=== PATIENT | female | born 1975 | race Hispanic/Latino ===

== ENCOUNTER 2019-08-01 03:00 | Emergency (ER) | payer OTHER ==
[~2019-08-01] VITALS: Ht 160 cm; Wt 69.9 kg
[2019-08-01] MEDS ORDERED: SODIUM CHLORIDE 0.9% 1000ML 1,000 ML IV STA (03:13)
[2019-08-01] MEDS ORDERED: ONDANSETRON HCL INJ 2MG/ML 2ML 2 MG/ML VIAL IV STA (03:13)
[2019-08-01] MEDS ORDERED: SODIUM CHLORIDE 0.9% 1000ML 1,000 ML ONE (03:50)
[2019-08-01] MEDS ORDERED: ONDANSETRON HCL INJ 2MG/ML 2ML 2 MG/ML VIAL ONE (03:50)
--- NOTE | 2019-08-01 04:14 | Diagnostic Imaging Report ---
EXAM: CT Abdomen and Pelvis without contrast INDICATION: Abdominal pain, nausea, vomiting. COMPARISON: None. TECHNIQUE: Abdomen and pelvis were scanned utilizing a multidetector helical scanner from the lung base to the pubic symphysis without administration of IV contrast. Coronal and sagittal reformations were obtained. IV CONTRAST: None. ORAL CONTRAST: None COMPLICATIONS: None RADIATION DOSE: Total DLP: 459 mGy*cm Estimated effective dose: (DLP x 0.015 x size factor) mSv CTDIvol has been reviewed. It is below the limits set by the Radiation Protocol Committee (RPC). FINDINGS: LINES and TUBES: None. LOWER THORAX: Unremarkable HEPATOBILIARY: Severe diffuse hepatic steatosis. Hepatomegaly. No evidence of focal lesion. No biliary ductal dilation. GALLBLADDER: Status post cholecystectomy. SPLEEN: No splenomegaly. PANCREAS: No focal masses or ductal dilatation. ADRENALS: No adrenal nodules KIDNEYS/URETERS: Kidneys enhance symmetrically. No evidence of hydronephrosis, solid mass, or stone. GI TRACT: No evidence of bowel obstruction. There is bowel wall thickening in the distal transverse colon and descending colon. Mild fatty infiltration in the ileal wall. The appendix is possibly visualized as seen on sagittal series 300, image 43 and axial series 2, image 62. Limited evaluation in the absence of IV and oral contrast. The appendix may be mildly borderline dilated measuring 7 mm, however there are no surrounding inflammatory changes to suggest appendicitis. PELVIC ORGANS/BLADDER: Bilateral Essure devices are noted. LYMPH NODES: No lymphadenopathy. VESSELS: Unremarkable. PERITONEUM / RETROPERITONEUM: No free air or fluid. BONES AND SOFT TISSUES: Unremarkable. CONCLUSION: Severe diffuse hepatic steatosis with hepatomegaly. Mild wall thickening of the distal transverse colon and descending colon may reflect decompression versus nonspecific colitis, which may be infectious or inflammatory. The appendix is possibly visualized and may be mildly dilated measuring up to 7 mm, however there are no surrounding inflammatory changes to suggest appendicitis. Signed by: Dr. Damon Smith MD on 08/01/2019 4:11 AM
--- NOTE | 2019-08-01 04:24 | Emergency Department Note ---
History of Present Illnes History of Present Illness Chief Complaint: Abdominal Complaints History of Present Illness This is a 43 year old female abdominal pain vomiting diarrhe . Historian: Patient Arrival Mode: Car Onset (how long ago): day(s) (2) Location: generalized Quality: cramping Radiation: non-radiation Severity: moderate Onset quality: gradual Duration (how long): day(s) (1) Timing of current episode: intermittent Progression: waxing and waning Chronicity: new Context: recent illness, recent surgery, recent immobilization, recent travel, trauma/injury, new medications, hx of DVT/PE, non-compliance w/ medications, other Relieving factors: none Exacerbating factors: none Associated symptoms: denies other symptoms Treatments prior to arrival: none Past Medical/Family History Physician Review I have reviewed the patient's past medical and family history. Any updates have been documented here. Past Medical History Recent Fever: No Clinical Suspicion of Infectio: No New/Unexplained Change in Ment: No Past Medical History: None Past Surgical History: Cholecysctectomy, Social History Smoking Cessation: Never Smoker Alcohol Use: None Any Illegal Drug Use: No TB Exposure/Symptoms: No Physically hurt or threatened: No Other Any Pre-Existing Lines (PICC,: No Is patient up to date on immun: No Last Flu: 01/27 Last Pneumovax: NA Review of Systems Review of Systems Constitutional: no symptoms EENTM: no symptoms Cardiovascular: no symptoms Respiratory: no symptoms Gastrointestinal: as per HPI, abdominal pain, diarrhea, nausea, vomiting Genitourinary: no symptoms Musculoskeletal: no symptoms Neurological: no symptoms Psychological: no symptoms Endocrine: no symptoms Hematological/Lymphatic: no symptoms Review of other systems All other systems reviewed and negative. Physical Exam Related Data Triage Vital Signs Vital Signs Date Time Temp Pulse Resp B/P (MAP) Pulse Ox O2 Delivery O2 Flow Rate FiO2 08/01/19 03:07 98.3 98 18 163/84 99 Vital signs reviewed: Yes Physical Exam CONSTITUTIONAL Constitutional: well-developed, well-nourished HENT HENT: normocephalic, atraumatic, oropharynx clear/moist, nose normal HENT L/R: left ext ear normal, right ext ear normal EYES Eyes: PERRL, conjunctivae normal NECK Neck: ROM normal PULMONARY Pulmonary: effort normal, breath sounds normal CARDIOVASCULAR Cardiovascular: regular rhythm, heart sounds normal, capillary refill normal, normal rate GASTROINTESTINAL Abdominal: soft, bowel sounds normal, tender GENITOURINARY Genitourinary: exam deferred SKIN Skin: warm, dry MUSCULOSKELETAL Musculoskeletal: ROM normal NEUROLOGICAL Neurological: alert, oriented x 3, no gross motor or sensory deficits PSYCHOLOGICAL Psychological: mood/affect normal, judgement normal Results Laboratory Lab results reviewed: Yes Imaging Imaging results reviewed: Yes Critical Care Time Subsequent provider I assumed direction of critical care for this patient from another provider of my specialty. Assessment & Plan Reassessment Reassessment time: 04:23 (improved) Assessment & Plan Final Impression: (1) Diarrhea (2) Vomiting (3) Colitis (4) Abdominal pain Assessment & Plan cipro flagyl zofran Depart Disposition: HOME, SELF-CARE Last Vital Signs Date Time Temp Pulse Resp B/P (MAP) Pulse Ox O2 Delivery O2 Flow Rate FiO2 08/01/19 03:07 98.3 98 18 163/84 99 Medications in the ED Ondansetron HCl 4 mg NOW STAT IV Last administered on 08/01/19at 03:50; Admin Dose 4 MG; Start 08/01/19 at 03:13; Stop 08/01/19 at 03:14; Status UNV Sodium Chloride 1,000 ml @ 0 mls/hr Q0M STAT IV Last administered on 08/01/19at 03:50; Admin Dose 1,000 MLS/HR; Start 08/01/19 at 03:13; Stop 08/01/19 at 03:15; Status DC Sodium Chloride 1,000 ml @ STK-MED ONCE .ROUTE ; Start 08/01/19 at 03:50; Stop 08/01/19 at 03:46; Status DC TRISTIN MCKOY MD August 01, 2019 04:24
--- NOTE | 2019-08-01 04:24 | NUR ---
INFORMED MD OF PT CONT. TO HAVE 10/10 PAIN TO ABD.
[2019-08-01] MEDS ORDERED: ZOFRAN4 MG SL (04:27)
[2019-08-01] MEDS ORDERED: FLAGYL500 MG PO (04:27)
[2019-08-01] MEDS ORDERED: CIPRO500 MG PO (04:27)
[2019-08-01] MEDS ORDERED: MORPHINE SULFATE 5 MG/ML VIAL IV ONE (04:30)
[2019-08-01] MEDS ORDERED: DICYCLOMINE HCL 20 MG/2 ML VIAL IM ONE ×2 (04:30→04:35)
[2019-08-01] MEDS ORDERED: MORPHINE SULFATE INJ 4 MG/ML INJ 1ML ONE (04:36)
[2019-08-01 05:09] VITALS: BP 158/83
== END 2019-08-01 05:11 | disposition home or self-care (01) ==
LOC: FSED 03:00
DX: R10.84 Generalized abdominal pain (principal); R11.2 Nausea with vomiting, unspecified; K52.9 Noninfective gastroenteritis and colitis, unspecified
CPT/HCPCS: 74176; 80053; 80076; 81003; 81025; 85025; 96372; 96374; 96376; 99284; J0500; J2270; J2405; J7030